=== PATIENT | female | born 1940 | race African-American/Black ===

== ENCOUNTER → 2016-06-25 | Outpatient (CLI) | payer BC ==
[~2016-06-25] MED LIST: AMLO10TA2 PO; ATOR10TA; CAR125T PO; ESCI20TA PO; OMEP20TA44 PO; WARF5TAB PO
[2016-06-25 12:14] LABS: Urine Bilirubin Negative (Negative); Urine Color Yellow (Yellow); Urine Glucose Normal (Normal); Urine Urobilinogen Normal (Negative)
[2016-06-25 12:15] LABS: Urine Blood Negative /uL (Negative); Urine Ketone Negative (Negative); Urine Nitrite Negative (Negative); Urine RBC 1 /hpf (0 - 4); Urine Squamous Epithelial Cell FEW /hpf (<5)
[2016-06-25 12:17] LABS: Hematocrit 49.9 % (36.0-46.0); Hemoglobin 16.6 g/dL (12.2-16.2); Mean Corpuscular Hemoglobin 30.7 pg (28.0-32.0); Mean Corpuscular Hgb Conc. 33.4 g/dL (32.0-36.0); Mean Corpuscular Volume 91.9 fL (80.0-100.0); Mean Platelet Volume 9.3 fL (7.4-10.4); Platelet Count (auto) 412 10^3/uL (140-450); Red Cell Distribution Width 14.5 % (11.6-16.0); SUSPECT VIEW TRANSMISSION; White Blood Cell 4.1 10^3/uL (4.4-10.8)
[2016-06-25 12:22] LABS: Metamyelocytes % 0; Myelocytes % 0; Promyelocytes % 0; Reactive Lymphocytes 0
[2016-06-25 13:10] LABS: Albumin 3.7 g/dL (3.4-5.0); BUN/Creatinine Ratio 7.9; Bilirubin, Total 0.8 mg/dL (0.2-1.0); Calcium 9.4 mg/dL (8.5-10.1); Potassium 3.6 mmol/L (3.5-5.1); Total Protein 8.7 g/dL (6.4-8.2)
[2016-06-25 14:09] LABS: Large Platelets FEW; Platelet Estimate Adequate; RBC Morphology Normal
== END | disposition home or self-care (01) ==
LOC: LAB 11:35
PROVIDERS: ATTEND Internal Medicine
DX: Z00.00 Encounter for general adult medical examination without abnormal findings (principal); I10 Essential (primary) hypertension; E78.2 Mixed hyperlipidemia; E55.9 Vitamin D deficiency, unspecified
CPT/HCPCS: 36415; 80053; 80061; 81001; 82306; 83036; 84443; 85007; 85027

== ENCOUNTER 2016-11-18 13:44 | Emergency (ER) | payer MEDICARE, OTHER ==
[~2016-11-18 13:44] MED LIST changes: -AMLO10TA2 PO; +APIX5TAB PO; -ATOR10TA; +ATOR20TA50 PO; -CAR125T PO; +CAR3125T OR; +CHOL1000T PO; +DONE5TAB11 PO; -ESCI20TA PO; +LEV25T PO; +LEVO25TA6 PO; -OMEP20TA44 PO; -WARF5TAB PO
== END 2016-11-18 14:27 | disposition left against medical advice (07) ==
LOC: ER 13:44
DX: Z76.1 Encounter for health supervision and care of foundling (principal); Z76.0 Encounter for issue of repeat prescription; Z53.21 Procedure and treatment not carried out due to patient leaving prior to being seen by health care provider

== ENCOUNTER → 2016-12-29 | Outpatient (CLI) | payer MEDICARE, OTHER ==
[2016-12-29 15:56] LABS: Basophils # (auto) 0.1 uL; Basophils % (auto) 1.1 % (0.0-2.0); Eosinophils # (auto) 0.6 uL; Eosinophils % (auto) 7.9 % (0.0-7.0); Hemoglobin 14.1 g/dL (12.2-16.2); Lymphocytes # (auto) 2.9 uL; Lymphocytes % (auto) 37.5 % (10.0-50.0); Mean Corpuscular Hemoglobin 29.8 pg (28.0-32.0); Mean Corpuscular Hgb Conc. 32.7 g/dL (32.0-36.0); Mean Platelet Volume 8.7 fL (6.9-10.8); Monocytes # (auto) 0.6 uL; Monocytes % (auto) 8.2 % (0.0-12.0); Neutrophils # (auto) 3.5 uL; Neutrophils % (auto) 45.3 % (37.0-80.0); Nucleated Red Blood Cells % 0.1 %; Platelet Count (auto) 357 10^3/uL (140-450); Red Cell Distribution Width 15.6 % (11.8-14.3); White Blood Cell 7.8 10^3/uL (4.4-10.8)
[2016-12-29 16:45] LABS: Albumin 3.5 g/dL (3.4-5.0); BUN/Creatinine Ratio 17.8; Bilirubin, Total 0.3 mg/dL (0.2-1.0); Calcium 9.5 mg/dL (8.5-10.1); Potassium 3.6 mmol/L (3.5-5.1)
== END | disposition home or self-care (01) ==
LOC: LAB 15:23
DX: I10 Essential (primary) hypertension (principal); M25.50 Pain in unspecified joint; D64.9 Anemia, unspecified; E78.00 Pure hypercholesterolemia, unspecified; M19.90 Unspecified osteoarthritis, unspecified site; Z79.899 Other long term (current) drug therapy
CPT/HCPCS: 36415; 80053; 85025; 85652; 86141

== ENCOUNTER 2017-02-22 20:18 | Inpatient (IN) | payer MEDICARE, OTHER ==
[~2017-02-22] VITALS: Ht 152.4 cm; Wt 76.1 kg
[2017-02-22 21:10] LABS: Basophils # (auto) 0 uL; Basophils % (auto) 0.4 % (0.0-2.0); Eosinophils # (auto) 0.1 uL; Eosinophils % (auto) 0.9 % (0.0-7.0); Hemoglobin 13.9 g/dL (12.2-16.2); Lymphocytes # (auto) 1.6 uL; Lymphocytes % (auto) 14.1 % (10.0-50.0); Mean Corpuscular Hemoglobin 30.6 pg (28.0-32.0); Mean Corpuscular Hgb Conc. 33.1 g/dL (32.0-36.0); Mean Corpuscular Volume 92.6 fL (80.0-100.0); Monocytes # (auto) 1.1 uL; Monocytes % (auto) 9.7 % (0.0-12.0); Neutrophils # (auto) 8.2 uL; Neutrophils % (auto) 74.9 % (37.0-80.0); Nucleated Red Blood Cells % 0.1 %; Platelet Count (auto) 328 10^3/uL (140-450); Red Blood Cells 4.53 10^6/uL (4.0-5.20); Red Cell Distribution Width 16.6 % (11.8-14.3)
[2017-02-22 21:27] LABS: INR 1.05 (0.9-1.15); Partial Thromboplastin Time 31.8 sec (22.64-33.71); Prothrombin Time 11.4 sec (9.37-12.3)
[2017-02-22 21:28] LABS: Albumin 3.1 g/dL (3.4-5.0); BUN/Creatinine Ratio 14.7; Bilirubin, Total 0.3 mg/dL (0.2-1.0); Calcium 8.7 mg/dL (8.5-10.1); Potassium 3.2 mmol/L (3.5-5.1); Total Protein 7.9 g/dL (6.4-8.2)
[2017-02-22] MEDS ORDERED: MORPHINE SULFATE 10 MG/ML INJ 1ML SDV IV ONE (22:45)
[2017-02-22] MEDS ORDERED: ONDANSETRON HCL 4 MG/2 ML VIAL IV ONE (22:45)
[2017-02-23] MEDS ORDERED: POTASSIUM CHL 20 Meq TABLET PO ONE (01:30)
[2017-02-23] MEDS ORDERED: MORPHINE SULF INJ 2 MG/ML SYRINGE 1ML IV ONE (06:30)
[2017-02-23] MEDS: ONDANSETRON HCL 4 MG/2 ML VIAL IV PRN ×2 (06:39→14:02)
[2017-02-23] MEDS ORDERED: LORazepam 0.5 MG TAB PO PRN (07:45)
[2017-02-23] MEDS: LEVOTHYROXINE SODIUM 25 MCG TAB PO SCH (07:56)
[2017-02-23] MEDS: MORPHINE SULF INJ 2 MG/ML SYRINGE 1ML IV PRN ×2 (07:56→14:02)
[2017-02-23] MEDS ORDERED: APIXABAN 5 MG TAB PO SCH (10:00)
[2017-02-23] MEDS: DULoxetine HCL 30 MG CAP PO SCH (10:09)
[2017-02-23] MEDS: CARVEDILOL 12.5 MG TAB PO SCH ×2 (10:09→21:54)
[2017-02-23] MEDS ORDERED: cefTRIAXone 1GM/10ml IVPUSH 10 ML IV ONE ×2 (15:15→15:16)
[2017-02-23 15:18] LABS: Urine Bacteria None Seen /hpf (None Seen)
[2017-02-23] MEDS: SODIUM CHLORIDE 0.9% 1,000 ML IV SCH ×2 (15:29→21:54)
[2017-02-23] MEDS: IBUPROFEN 600 MG TAB PO PRN (16:11)
[2017-02-23 16:12] LABS: Urine Specific Gravity 1.025 (1.001-1.035)
[2017-02-23 16:13] LABS: Urine Blood Trace /uL (Negative)
[2017-02-23 16:15] LABS: Urine Mucus MODERATE (None Seen); Urine WBC 5 /hpf (0 - 5)
[2017-02-23 21:00] VITALS: BP 107/62
[2017-02-23] MEDS: DONEPEZIL HYDROCHLORIDE 5 MG TAB PO SCH (21:53)
[2017-02-23] MEDS: ATORVASTATIN 20 MG TAB PO SCH (21:54)
[2017-02-23 21:57] VITALS: BP 107/62
[2017-02-24] VITALS (7 sets, daily range): BP systolic 88–139; BP diastolic 41–137
[2017-02-24] MEDS ORDERED: DULO20CA PO (00:34)
[2017-02-24 05:37] LABS: Basophils # (auto) 0.1 uL; Basophils % (auto) 0.6 % (0.0-2.0); Eosinophils # (auto) 0.2 uL; Eosinophils % (auto) 2.9 % (0.0-7.0); Hematocrit 35.2 % (36.0-46.0); Hemoglobin 11.8 g/dL (12.2-16.2); Lymphocytes # (auto) 1.8 uL; Lymphocytes % (auto) 20.7 % (10.0-50.0); Mean Corpuscular Hemoglobin 31.5 pg (28.0-32.0); Mean Corpuscular Hgb Conc. 33.6 g/dL (32.0-36.0); Mean Corpuscular Volume 93.6 fL (80.0-100.0); Monocytes # (auto) 1.1 uL; Monocytes % (auto) 13.2 % (0.0-12.0); Neutrophils # (auto) 5.4 uL; Neutrophils % (auto) 62.6 % (37.0-80.0); Platelet Count (auto) 272 10^3/uL (140-450); Red Blood Cells 3.76 10^6/uL (4.0-5.20); Red Cell Distribution Width 16.6 % (11.8-14.3); White Blood Cell 8.6 10^3/uL (4.4-10.8)
[2017-02-24 06:00] LABS: Calcium 8.9 mg/dL (8.5-10.1); Magnesium 2.5 mg/dL (1.6-2.6); Potassium 3.7 mmol/L (3.5-5.1)
[2017-02-24] MEDS: LEVOTHYROXINE SODIUM 25 MCG TAB PO SCH (06:06)
[2017-02-24] MEDS ORDERED: LIDOCAINE W/ EPINEPHRINE 2% INJ 20ML VIAL IJ ONE (06:15)
[2017-02-24] MEDS ORDERED: BUPIVACAINE 0.25% INJ 50ML VIAL IJ ONE (06:15)
[2017-02-24] MEDS ORDERED: BUPIVACAINE W/ EPINEPH 0.25% INJ 50ML MDV IJ ONE (07:15)
[2017-02-24] MEDS ORDERED: LIDOCAINE 2%HCL (LOCAL ANESTH.) INJ 20ML MDV IJ ONE (07:15)
[2017-02-24] MEDS: IBUPROFEN 600 MG TAB PO PRN ×2 (08:44→16:34)
[2017-02-24] MEDS: CARVEDILOL 12.5 MG TAB PO SCH ×2 (08:55→22:00)
[2017-02-24] MEDS: cefTRIAXone 1GM/10ml IVPUSH 10 ML IV SCH (08:55)
[2017-02-24] MEDS: HYDROcodone-ACET 5/325MG TAB PO PRN ×2 (09:39→20:33)
[2017-02-24] MEDS: DULoxetine HCL 30 MG CAP PO SCH (10:00)
[2017-02-24] MEDS: APIXABAN 5 MG TAB PO SCH ×2 (15:41→22:43)
[2017-02-24] MEDS: ATORVASTATIN 20 MG TAB PO SCH (22:43)
[2017-02-24] MEDS: DONEPEZIL HYDROCHLORIDE 5 MG TAB PO SCH (22:43)
[2017-02-24] MEDS: SODIUM CHLORIDE 0.9% 1,000 ML IV SCH (22:44)
[2017-02-24] MEDS: ONDANSETRON HCL 4 MG/2 ML VIAL IV PRN (22:44)
[2017-02-24] MEDS: MORPHINE SULFATE 10 MG/ML INJ 1ML SDV IV PRN (22:44)
[2017-02-25 05:00] VITALS: BP 110/61
[2017-02-25] MEDS: IBUPROFEN 600 MG TAB PO PRN (05:10)
[2017-02-25] MEDS: LEVOTHYROXINE SODIUM 25 MCG TAB PO SCH (05:11)
[2017-02-25 07:03] LABS: Basophils # (auto) 0 uL; Basophils % (auto) 0.4 % (0.0-2.0); Eosinophils # (auto) 0.3 uL; Eosinophils % (auto) 4.5 % (0.0-7.0); Hematocrit 34.9 % (36.0-46.0); Hemoglobin 11.5 g/dL (12.2-16.2); Lymphocytes # (auto) 1.3 uL; Lymphocytes % (auto) 17.7 % (10.0-50.0); Mean Corpuscular Hemoglobin 30.8 pg (28.0-32.0); Mean Corpuscular Volume 93.5 fL (80.0-100.0); Monocytes # (auto) 0.8 uL; Monocytes % (auto) 10.9 % (0.0-12.0); Neutrophils % (auto) 66.5 % (37.0-80.0); Nucleated Red Blood Cells % 0.1 %; Platelet Count (auto) 310 10^3/uL (140-450); Red Blood Cells 3.73 10^6/uL (4.0-5.20); Red Cell Distribution Width 16.4 % (11.8-14.3); White Blood Cell 7.5 10^3/uL (4.4-10.8)
[2017-02-25 07:26] LABS: BUN/Creatinine Ratio 25.5; Calcium 8.6 mg/dL (8.5-10.1); Potassium 3.8 mmol/L (3.5-5.1)
[2017-02-25 09:00] VITALS: BP 117/60
[2017-02-25] MEDS: cefTRIAXone 1GM/10ml IVPUSH 10 ML IV SCH (09:28)
[2017-02-25] MEDS: DULoxetine HCL 30 MG CAP PO SCH (09:28)
[2017-02-25] MEDS: APIXABAN 5 MG TAB PO SCH ×2 (09:29→22:14)
[2017-02-25 13:00] VITALS: BP 111/57
[2017-02-25] MEDS: HYDROcodone-ACET 5/325MG TAB PO PRN (15:32)
[2017-02-25 16:30] VITALS: BP 146/65
[2017-02-25] MEDS: CARVEDILOL 12.5 MG TAB PO SCH ×2 (17:37→22:14)
[2017-02-25] MEDS: SODIUM CHLORIDE 0.9% 1,000 ML IV SCH (17:37)
[2017-02-25 22:00] VITALS: BP 103/51
[2017-02-25 22:07] VITALS: BP 103/51
[2017-02-25] MEDS: DONEPEZIL HYDROCHLORIDE 5 MG TAB PO SCH (22:13)
[2017-02-25] MEDS: ATORVASTATIN 20 MG TAB PO SCH (22:14)
[2017-02-26] MEDS: HYDROcodone-ACET 5/325MG TAB PO PRN (00:29)
[2017-02-26] MEDS: MORPHINE SULFATE 10 MG/ML INJ 1ML SDV IV PRN ×4 (05:00→20:02)
[2017-02-26] MEDS: ONDANSETRON HCL 4 MG/2 ML VIAL IV PRN (05:00)
[2017-02-26 05:13] VITALS: BP 113/63
[2017-02-26] MEDS: LEVOTHYROXINE SODIUM 25 MCG TAB PO SCH (05:53)
[2017-02-26 09:00] VITALS: BP 127/66
[2017-02-26] MEDS: cefTRIAXone 1GM/10ml IVPUSH 10 ML IV SCH (09:38)
[2017-02-26] MEDS: CARVEDILOL 12.5 MG TAB PO SCH ×2 (09:39→21:56)
[2017-02-26] MEDS: DULoxetine HCL 30 MG CAP PO SCH (09:39)
[2017-02-26] MEDS: APIXABAN 5 MG TAB PO SCH (10:00)
[2017-02-26] MEDS: SODIUM CHLORIDE 0.9% 1,000 ML IV SCH (11:05)
[2017-02-26 13:00] VITALS: BP 136/64
[2017-02-26 17:00] VITALS: BP 146/73
[2017-02-26] MEDS: DONEPEZIL HYDROCHLORIDE 5 MG TAB PO SCH (21:56)
[2017-02-26] MEDS: ATORVASTATIN 20 MG TAB PO SCH (21:56)
[2017-02-26 22:00] VITALS: BP 142/78
[2017-02-27] MEDS: SODIUM CHLORIDE 0.9% 1,000 ML IV SCH ×2 (02:10→12:45)
[2017-02-27 05:00] VITALS: BP 150/76
[2017-02-27 06:28] LABS: Basophils # (auto) 0 uL; Basophils % (auto) 0.5 % (0.0-2.0); Eosinophils # (auto) 0.2 uL; Eosinophils % (auto) 3.6 % (0.0-7.0); Hematocrit 33.1 % (36.0-46.0); Hemoglobin 10.7 g/dL (12.2-16.2); Lymphocytes # (auto) 1.9 uL; Mean Corpuscular Hemoglobin 30.2 pg (28.0-32.0); Mean Corpuscular Hgb Conc. 32.2 g/dL (32.0-36.0); Mean Corpuscular Volume 93.8 fL (80.0-100.0); Monocytes # (auto) 0.8 uL; Monocytes % (auto) 10.9 % (0.0-12.0); Platelet Count (auto) 333 10^3/uL (140-450); Red Blood Cells 3.53 10^6/uL (4.0-5.20); Red Cell Distribution Width 15.8 % (11.8-14.3); White Blood Cell 6.9 10^3/uL (4.4-10.8)
[2017-02-27] MEDS: LEVOTHYROXINE SODIUM 25 MCG TAB PO SCH (06:43)
[2017-02-27 06:47] LABS: BUN/Creatinine Ratio 23.9; Calcium 9.1 mg/dL (8.5-10.1)
[2017-02-27 08:00] VITALS: BP 156/78
[2017-02-27 09:00] VITALS: BP 156/78
[2017-02-27] MEDS: DULoxetine HCL 30 MG CAP PO SCH (09:22)
[2017-02-27] MEDS: cefTRIAXone 1GM/10ml IVPUSH 10 ML IV SCH (09:23)
[2017-02-27] MEDS: CARVEDILOL 12.5 MG TAB PO SCH ×2 (09:24→21:59)
[2017-02-27] MEDS: MORPHINE SULFATE 10 MG/ML INJ 1ML SDV IV PRN ×4 (09:24→21:57)
[2017-02-27 13:00] VITALS: BP 128/73
[2017-02-27 17:00] VITALS: BP 151/74
[2017-02-27] MEDS: HYDROcodone-ACET 5/325MG TAB PO PRN (20:07)
[2017-02-27] MEDS: DONEPEZIL HYDROCHLORIDE 5 MG TAB PO SCH (21:58)
[2017-02-27] MEDS: ATORVASTATIN 20 MG TAB PO SCH (21:59)
[2017-02-27 22:00] VITALS: BP 146/70
[2017-02-28] MEDS ORDERED: diphenhdrAMINE HCL 25 MG CAP PO ONE (00:30)
[2017-02-28] MEDS: HYDROcodone-ACET 5/325MG TAB PO PRN ×2 (00:51→13:43)
[2017-02-28 05:00] VITALS: BP 108/67
[2017-02-28] MEDS: MORPHINE SULFATE 10 MG/ML INJ 1ML SDV IV PRN ×3 (05:24→22:51)
[2017-02-28] MEDS: IBUPROFEN 600 MG TAB PO PRN (06:29)
[2017-02-28] MEDS: LEVOTHYROXINE SODIUM 25 MCG TAB PO SCH (06:30)
[2017-02-28 06:56] LABS: Hemoglobin 10.8 g/dL (12.2-16.2)
[2017-02-28] MEDS: SODIUM CHLORIDE 0.9% 1,000 ML IV SCH (08:45)
[2017-02-28 09:00] VITALS: BP 143/60
[2017-02-28] MEDS: DULoxetine HCL 30 MG CAP PO SCH (09:47)
[2017-02-28] MEDS: CARVEDILOL 12.5 MG TAB PO SCH ×2 (09:51→22:49)
[2017-02-28 13:00] VITALS: BP 131/62
[2017-02-28] MEDS ORDERED: LACTULOSE 20Gm/30ML SOLN PO PRN (14:00)
[2017-02-28] MEDS ORDERED: DOCUSATE SOD 100 MG CAP PO SCH (14:00)
[2017-02-28 17:00] VITALS: BP 133/56
[2017-02-28] MEDS ORDERED: IOHEXOL 300 MG/ML 100ML BOTTLE IJ ONE (22:09)
[2017-02-28 22:18] VITALS: BP 135/66
[2017-02-28] MEDS: DOCUSATE SOD 100 MG CAP PO SCH (22:48)
[2017-02-28] MEDS: DONEPEZIL HYDROCHLORIDE 5 MG TAB PO SCH (22:48)
[2017-02-28] MEDS: ATORVASTATIN 20 MG TAB PO SCH (22:49)
[2017-03-01] MEDS: MORPHINE SULFATE 10 MG/ML INJ 1ML SDV IV PRN ×3 (04:11→19:30)
[2017-03-01 04:43] VITALS: BP 173/74
[2017-03-01] MEDS: SODIUM CHLORIDE 0.9% 1,000 ML IV SCH (04:49)
[2017-03-01] MEDS: LEVOTHYROXINE SODIUM 25 MCG TAB PO SCH (06:13)
[2017-03-01 06:43] LABS: Basophils # (auto) 0.1 uL; Basophils % (auto) 0.6 % (0.0-2.0); Eosinophils # (auto) 0.3 uL; Hematocrit 33.5 % (36.0-46.0); Lymphocytes # (auto) 2.3 uL; Lymphocytes % (auto) 29.2 % (10.0-50.0); Mean Corpuscular Hemoglobin 30.6 pg (28.0-32.0); Mean Corpuscular Hgb Conc. 32.9 g/dL (32.0-36.0); Monocytes # (auto) 0.8 uL; Monocytes % (auto) 10.6 % (0.0-12.0); Neutrophils # (auto) 4.4 uL; Neutrophils % (auto) 55.6 % (37.0-80.0); Platelet Count (auto) 362 10^3/uL (140-450); Red Cell Distribution Width 15.8 % (11.8-14.3)
[2017-03-01 06:57] LABS: BUN/Creatinine Ratio 23.4; Potassium 3.9 mmol/L (3.5-5.1)
[2017-03-01 09:00] VITALS: BP 148/77
[2017-03-01] MEDS: HYDROcodone-ACET 5/325MG TAB PO PRN (09:49)
[2017-03-01] MEDS: CARVEDILOL 12.5 MG TAB PO SCH ×2 (09:50→22:06)
[2017-03-01] MEDS: DOCUSATE SOD 100 MG CAP PO SCH ×2 (09:50→22:05)
[2017-03-01] MEDS: DULoxetine HCL 30 MG CAP PO SCH (09:50)
[2017-03-01 13:00] VITALS: BP 143/79
[2017-03-01 18:20] VITALS: BP 143/79
[2017-03-01 21:30] VITALS: BP 152/72
[2017-03-01] MEDS: DONEPEZIL HYDROCHLORIDE 5 MG TAB PO SCH (22:05)
[2017-03-01] MEDS: ATORVASTATIN 20 MG TAB PO SCH (22:06)
[2017-03-02] MEDS: MORPHINE SULFATE 10 MG/ML INJ 1ML SDV IV PRN ×4 (01:51→17:25)
[2017-03-02 05:00] VITALS: BP 153/67
[2017-03-02] MEDS: LEVOTHYROXINE SODIUM 25 MCG TAB PO SCH (06:06)
[2017-03-02 07:17] LABS: Hematocrit 34.2 % (36.0-46.0); Hemoglobin 11.3 g/dL (12.2-16.2)
[2017-03-02 08:00] VITALS: BP 159/65
[2017-03-02 09:13] VITALS: BP 159/65
[2017-03-02] MEDS: DULoxetine HCL 30 MG CAP PO SCH (10:32)
[2017-03-02] MEDS: DOCUSATE SOD 100 MG CAP PO SCH ×2 (10:32→22:12)
[2017-03-02] MEDS: CARVEDILOL 12.5 MG TAB PO SCH ×2 (10:33→22:12)
[2017-03-02 12:44] VITALS: BP 145/69
[2017-03-02] MEDS ORDERED: APIXABAN 5 MG TAB PO ONE (12:53)
[2017-03-02] MEDS ORDERED: LORazepam 0.5 MG TAB PO PRN (13:00)
[2017-03-02] MEDS ORDERED: HYDROcodone-ACET 5/325MG TAB PO PRN (13:00)
[2017-03-02 16:35] VITALS: BP 141/63
[2017-03-02 22:07] VITALS: BP 166/79
[2017-03-02] MEDS: DONEPEZIL HYDROCHLORIDE 5 MG TAB PO SCH (22:11)
[2017-03-02] MEDS: ATORVASTATIN 20 MG TAB PO SCH (22:12)
[2017-03-02] MEDS: APIXABAN 5 MG TAB PO SCH (22:12)
[2017-03-03] MEDS: MORPHINE SULFATE 10 MG/ML INJ 1ML SDV IV PRN ×4 (00:38→13:45)
[2017-03-03 05:09] VITALS: BP 145/57
[2017-03-03] MEDS: LEVOTHYROXINE SODIUM 25 MCG TAB PO SCH (05:56)
[2017-03-03 07:29] LABS: Hematocrit 33.7 % (36.0-46.0); Hemoglobin 11.1 g/dL (12.2-16.2)
[2017-03-03 08:00] VITALS: BP 145/67
[2017-03-03 09:25] VITALS: BP 145/67
[2017-03-03] MEDS: DULoxetine HCL 30 MG CAP PO SCH (09:29)
[2017-03-03] MEDS: CARVEDILOL 12.5 MG TAB PO SCH (09:30)
[2017-03-03] MEDS: APIXABAN 5 MG TAB PO SCH (09:30)
[2017-03-03] MEDS: DOCUSATE SOD 100 MG CAP PO SCH (09:30)
[2017-03-03] MEDS ORDERED: HYDR-4683 PO (11:24)
[2017-03-03 12:28] VITALS: BP 128/58
[2017-03-03 12:50] VITALS: BP 128/58
== END 2017-03-03 16:20 | disposition home health service (06) | DRG 553 ==
LOC: ER 20:18 → EDBD 20:18 → OVERFLOW 20:19 → WEST WING 02-23 20:23
PROVIDERS: ADMIT Nurse Practitioner Family; ATTEND Internal Medicine
DX: M17.12 Unilateral primary osteoarthritis, left knee (principal); N17.0 Acute kidney failure with tubular necrosis; E44.1 Mild protein-calorie malnutrition; I69.351 Hemiplegia and hemiparesis following cerebral infarction affecting right dominant side; R31.0 Gross hematuria; M25.462 Effusion, left knee; E03.9 Hypothyroidism, unspecified; E78.5 Hyperlipidemia, unspecified; I10 Essential (primary) hypertension; I25.10 Atherosclerotic heart disease of native coronary artery without angina pectoris; E87.6 Hypokalemia; R73.9 Hyperglycemia, unspecified; J45.909 Unspecified asthma, uncomplicated; Z79.01 Long term (current) use of anticoagulants; Z79.899 Other long term (current) drug therapy; Z82.49 Family history of ischemic heart disease and other diseases of the circulatory system; Z82.5 Family history of asthma and other chronic lower respiratory diseases; Z83.3 Family history of diabetes mellitus; Z85.43 Personal history of malignant neoplasm of ovary; Z86.711 Personal history of pulmonary embolism; Z86.718 Personal history of other venous thrombosis and embolism; Z90.710 Acquired absence of both cervix and uterus; Z90.49 Acquired absence of other specified parts of digestive tract; Z87.440 Personal history of urinary (tract) infections; Z88.6 Allergy status to analgesic agent; Z68.32 Body mass index [BMI] 32.0-32.9, adult; Z71.3 Dietary counseling and surveillance
CPT/HCPCS: 36415; 73700; 74178; 80048; 80053; 80061; 81001; 83735; 84443; 84484; 84550; 85014; 85018; 85025; 85379; 85610; 85652; 85730; 86141; 87040; 87205; 89051; 93005; 93971; 96374; 96375; 96376; 97110; 97116; 97163; 97530; J2405

== ENCOUNTER 2017-03-04 16:38 | Emergency (ER) | payer MEDICARE, OTHER ==
[~2017-03-04] VITALS: Ht 160 cm; Wt 95.3 kg
[~2017-03-04 16:38] MED LIST changes: +DULO20CA PO; +HYDR-4683 PO
[2017-03-04] MEDS ORDERED: ONDANSETRON HCL 4 MG/2 ML VIAL IV ONE (21:15)
[2017-03-04] MEDS ORDERED: MORPHINE SULFATE 10 MG/ML INJ 1ML SDV IV ONE (21:15)
[2017-03-05 04:00] VITALS: BP 173/98
[2017-03-05] MEDS ORDERED: MORPHINE SULFATE 10 MG/ML INJ 1ML SDV IV ONE (04:15)
[2017-04-06] MEDS ORDERED: FAM20T PO (10:47)
[2017-04-06] MEDS ORDERED: CLOP75TA28 PO (10:47)
[2017-04-06] MEDS ORDERED: DOCU100C8 PO (10:47)
[2017-04-06] MEDS ORDERED: ENO100SY SC (12:40)
== END 2017-03-05 05:04 | disposition home or self-care (01) ==
LOC: ER 16:38 → EDBD 16:38 → ER 03-05 05:04
DX: M54.32 Sciatica, left side (principal); M54.17 Radiculopathy, lumbosacral region; I11.0 Hypertensive heart disease with heart failure; I50.9 Heart failure, unspecified; J45.909 Unspecified asthma, uncomplicated; Z86.73 Personal history of transient ischemic attack (TIA), and cerebral infarction without residual deficits; Z86.711 Personal history of pulmonary embolism; Z86.718 Personal history of other venous thrombosis and embolism; Z82.49 Family history of ischemic heart disease and other diseases of the circulatory system; Z88.6 Allergy status to analgesic agent; Z88.8 Allergy status to other drugs, medicaments and biological substances
CPT/HCPCS: 51702; 72131; 93005; 94761; 96374; 96375; 96376; 99284; J2270; J2405

== ENCOUNTER 2017-03-24 23:19 | Inpatient (IN) | payer MEDICARE, OTHER ==
[~2017-03-24] VITALS: Ht 152.4 cm; Wt 79.5 kg
[2017-03-25 00:55] LABS: Basophils # (auto) 0.1 uL; Basophils % (auto) 0.9 % (0.0-2.0); Eosinophils # (auto) 0.5 uL; Eosinophils % (auto) 7.2 % (0.0-7.0); Hematocrit 36.7 % (36.0-46.0); Hemoglobin 11.6 g/dL (12.2-16.2); Lymphocytes # (auto) 2.3 uL; Lymphocytes % (auto) 31.4 % (10.0-50.0); Mean Corpuscular Hemoglobin 29.6 pg (28.0-32.0); Mean Corpuscular Hgb Conc. 31.7 g/dL (32.0-36.0); Mean Corpuscular Volume 93.5 fL (80.0-100.0); Monocytes # (auto) 0.7 uL; Monocytes % (auto) 9.7 % (0.0-12.0); Neutrophils # (auto) 3.8 uL; Neutrophils % (auto) 50.8 % (37.0-80.0); Nucleated Red Blood Cells % 0.2 %; Platelet Count (auto) 330 10^3/uL (140-450); Red Blood Cells 3.92 10^6/uL (4.0-5.20); Red Cell Distribution Width 15.7 % (11.8-14.3); White Blood Cell 7.4 10^3/uL (4.4-10.8)
[2017-03-25 01:07] LABS: Albumin 2.6 g/dL (3.4-5.0); BUN/Creatinine Ratio 21.9; Magnesium 2.2 mg/dL (1.6-2.6); Potassium 3.8 mmol/L (3.5-5.1)
[2017-03-25 01:10] LABS: Bilirubin, Total 0.3 mg/dL (0.2-1.0); Total Protein 7.7 g/dL (6.4-8.2)
[2017-03-25 01:21] LABS: INR 1.1 (0.9-1.15); Partial Thromboplastin Time 31.7 sec (22.64-33.71)
[2017-03-25 02:13] LABS: Urine Bacteria MOD /hpf (None Seen); Urine Blood 2+ /uL (Negative); Urine Mucus FEW (None Seen); Urine Specific Gravity 1.015 (1.001-1.035); Urine WBC 62 /hpf (0 - 5); Urine WBC Clumps PRESENT /hpf (None Seen)
[2017-03-25] MEDS ORDERED: HYDROcodone-ACET 10/325MG TAB PO ONE (05:45)
[2017-03-25] MEDS ORDERED: cefTRIAXone 1GM/10ml IVPUSH 10 ML IV ONE (05:45)
[2017-03-25] MEDS ORDERED: cloNIDine HCL 0.1 MG TAB PO ONE (05:45)
[2017-03-25] MEDS ORDERED: ONDANSETRON HCL 4 MG/2 ML VIAL IV PRN (08:15)
[2017-03-25] MEDS ORDERED: ACETAMINOPHEN 500 MG TAB PO PRN (08:15)
[2017-03-25] MEDS ORDERED: cloNIDine HCL 0.1 MG TAB PO PRN (08:30)
[2017-03-25] MEDS: HYDROcodone-ACET 5/325MG TAB PO PRN ×2 (10:17→20:54)
[2017-03-25 15:55] VITALS: BP 143/78
[2017-03-25 17:39] VITALS: BP 152/67
[2017-03-25 22:17] VITALS: BP 137/70
[2017-03-26] MEDS: HYDROcodone-ACET 5/325MG TAB PO PRN ×4 (01:39→23:57)
[2017-03-26 05:07] VITALS: BP 163/88
[2017-03-26 09:00] VITALS: BP 131/68
[2017-03-26] MEDS: cefTRIAXone 1GM/10ml IVPUSH 10 ML IV SCH (09:25)
[2017-03-26 13:00] VITALS: BP 112/57
[2017-03-26 17:00] VITALS: BP 149/70
[2017-03-26 22:00] VITALS: BP 111/61
[2017-03-27] MEDS: HYDROcodone-ACET 5/325MG TAB PO PRN ×2 (05:23→09:34)
[2017-03-27 06:24] VITALS: BP 123/61
[2017-03-27 08:00] VITALS: BP 139/56
[2017-03-27 09:00] VITALS: BP 125/62
[2017-03-27] MEDS: cefTRIAXone 1GM/10ml IVPUSH 10 ML IV SCH (09:00)
[2017-04-06] MEDS ORDERED: CLOP75TA28 PO (10:47)
[2017-04-06] MEDS ORDERED: DOCU100C8 PO (10:47)
[2017-04-06] MEDS ORDERED: FAM20T PO (10:47)
[2017-04-06] MEDS ORDERED: ENO100SY SC (12:40)
== END 2017-03-27 13:46 | DRG 689 ==
LOC: EDBD 23:19 → ER 23:19 → MERGE 23:20 → OVERFLOW 23:20 → WEST WING 03-25 15:26
PROVIDERS: ADMIT Nurse Practitioner Family; ATTEND Family Medicine
DX: N30.91 Cystitis, unspecified with hematuria (principal); K56.2 Volvulus; D64.9 Anemia, unspecified; K56.7 Ileus, unspecified; E86.0 Dehydration; K57.30 Diverticulosis of large intestine without perforation or abscess without bleeding; F03.90 Unspecified dementia, unspecified severity, without behavioral disturbance, psychotic disturbance, mood disturbance, and anxiety; I10 Essential (primary) hypertension; Z74.01 Bed confinement status; Z88.6 Allergy status to analgesic agent; Z82.49 Family history of ischemic heart disease and other diseases of the circulatory system; Z83.3 Family history of diabetes mellitus; Z82.5 Family history of asthma and other chronic lower respiratory diseases; Z80.8 Family history of malignant neoplasm of other organs or systems; Z88.8 Allergy status to other drugs, medicaments and biological substances; Z79.899 Other long term (current) drug therapy; I69.398 Other sequelae of cerebral infarction
CPT/HCPCS: 36415; 51702; 74176; 80053; 81001; 83735; 85025; 85610; 85730; 96374

== ENCOUNTER 2017-03-29 12:59 | Inpatient (IN) | payer MEDICARE, OTHER ==
[~2017-03-29] VITALS: Ht 154.9 cm; Wt 80.8 kg
[~2017-03-29 12:59] MED LIST changes: -LEVO25TA6 PO
[2017-03-29 13:57] LABS: Basophils # (auto) 0 uL; Basophils % (auto) 0.5 % (0.0-2.0); Eosinophils # (auto) 0.4 uL; Eosinophils % (auto) 5.6 % (0.0-7.0); Hematocrit 35.5 % (36.0-46.0); Hemoglobin 11.5 g/dL (12.2-16.2); Lymphocytes # (auto) 2.1 uL; Mean Corpuscular Hemoglobin 30.5 pg (28.0-32.0); Mean Corpuscular Hgb Conc. 32.4 g/dL (32.0-36.0); Mean Corpuscular Volume 94.2 fL (80.0-100.0); Monocytes % (auto) 12.9 % (0.0-12.0); Neutrophils # (auto) 4.3 uL; Nucleated Red Blood Cells % 0.1 %; Platelet Count (auto) 311 10^3/uL (140-450); Red Blood Cells 3.77 10^6/uL (4.0-5.20); Red Cell Distribution Width 16.2 % (11.8-14.3)
[2017-03-29 14:18] LABS: Alanine Aminotransferase 11 U/L (13-56); Albumin 2.6 g/dL (3.4-5.0); Alkaline Phosphatase 67 U/L (45-117); Anion Gap 5 (5-15); Aspartate Aminotransferase 9 U/L (15-37); BUN/Creatinine Ratio 19.4; Bilirubin, Total 0.2 mg/dL (0.2-1.0); Blood Urea Nitrogen 14 mg/dL (7-18); Carbon Dioxide 29 mmol/L (21-32); Chloride 107 mmol/L (98-107); GFR African American 101 mL/min; GFR Non-African American 83 mL/min; Glucose 85 mg/dL (74-106); Magnesium 2.6 mg/dL (1.6-2.6); Potassium 4.1 mmol/L (3.5-5.1); Sodium 141 mmol/L (136-145); Total Protein 8.4 g/dL (6.4-8.2)
[2017-03-29] MEDS ORDERED: ACETAMINOPHEN 325 MG TAB PO ONE ×2 (16:03→16:15)
[2017-03-29] MEDS ORDERED: HYDROcodone-ACET 10/325MG TAB PO ONE (20:00)
[2017-03-29] MEDS ORDERED: TEMAZEPAM 15 MG CAP PO PRN (21:45)
[2017-03-29] MEDS ORDERED: NITROGLYCERIN 0.4 MG SL TAB SL PRN (21:45)
[2017-03-29] MEDS ORDERED: MORPHINE SULFATE 4 MG/ML SYR/VIAL IV PRN (21:45)
[2017-03-29] MEDS: FAMOTIDINE 20 MG TAB PO SCH (22:13)
[2017-03-29] MEDS: CARVEDILOL 12.5 MG TAB PO SCH (22:13)
[2017-03-29] MEDS: DONEPEZIL HYDROCHLORIDE 5 MG TAB PO SCH (22:13)
[2017-03-29 23:50] VITALS: BP 184/81
[2017-03-30] VITALS (7 sets, daily range): BP systolic 127–171; BP diastolic 66–81
[2017-03-30] MEDS: cloNIDine HCL 0.1 MG TAB PO PRN (01:43)
[2017-03-30] MEDS: ACETAMINOPHEN 325 MG TAB PO PRN ×2 (01:46→17:49)
[2017-03-30] MEDS: LEVOTHYROXINE SODIUM 25 MCG TAB PO SCH (06:50)
[2017-03-30 06:55] LABS: Basophils # (auto) 0.1 uL; Basophils % (auto) 0.8 % (0.0-2.0); Eosinophils # (auto) 0.4 uL; Hematocrit 35.1 % (36.0-46.0); Hemoglobin 11.5 g/dL (12.2-16.2); Lymphocytes # (auto) 1.9 uL; Lymphocytes % (auto) 28.5 % (10.0-50.0); Mean Corpuscular Hemoglobin 30.7 pg (28.0-32.0); Mean Corpuscular Hgb Conc. 32.9 g/dL (32.0-36.0); Mean Corpuscular Volume 93.5 fL (80.0-100.0); Monocytes # (auto) 0.9 uL; Monocytes % (auto) 13.4 % (0.0-12.0); Neutrophils # (auto) 3.5 uL; Neutrophils % (auto) 51.3 % (37.0-80.0); Nucleated Red Blood Cells % 0.1 %; Platelet Count (auto) 291 10^3/uL (140-450); Red Blood Cells 3.75 10^6/uL (4.0-5.20); Red Cell Distribution Width 15.9 % (11.8-14.3); White Blood Cell 6.7 10^3/uL (4.4-10.8)
[2017-03-30 07:18] LABS: Albumin 2.7 g/dL (3.4-5.0); Blood Urea Nitrogen 15 mg/dL (7-18); Calcium 9.2 mg/dL (8.5-10.1); Chloride 106 mmol/L (98-107); Glucose 100 mg/dL (74-106); Potassium 3.8 mmol/L (3.5-5.1); Sodium 139 mmol/L (136-145)
[2017-03-30 07:22] LABS: Anion Gap 3 (5-15); Aspartate Aminotransferase 8 U/L (15-37); BUN/Creatinine Ratio 22.1; Bilirubin, Total 0.3 mg/dL (0.2-1.0); Carbon Dioxide 30 mmol/L (21-32); GFR African American 108 mL/min; GFR Non-African American 89 mL/min; Total Protein 7.8 g/dL (6.4-8.2)
[2017-03-30 07:28] LABS: Alanine Aminotransferase 9 U/L (13-56); Alkaline Phosphatase 63 U/L (45-117)
[2017-03-30] MEDS: CARVEDILOL 12.5 MG TAB PO SCH ×2 (09:35→22:58)
[2017-03-30] MEDS: DULoxetine HCL 30 MG CAP PO SCH (09:36)
[2017-03-30] MEDS: FAMOTIDINE 20 MG TAB PO SCH ×2 (09:36→22:58)
[2017-03-30] MEDS: ONDANSETRON HCL 4 MG/2 ML VIAL IV PRN (09:37)
[2017-03-30] MEDS: DONEPEZIL HYDROCHLORIDE 5 MG TAB PO SCH (22:59)
[2017-03-31 04:57] VITALS: BP 153/80
[2017-03-31] MEDS: ACETAMINOPHEN 325 MG TAB PO PRN ×2 (05:04→16:41)
[2017-03-31] MEDS: LEVOTHYROXINE SODIUM 25 MCG TAB PO SCH (05:18)
[2017-03-31] MEDS: HYDROcodone-ACET 5/325MG TAB PO PRN ×2 (08:34→20:28)
[2017-03-31 09:00] VITALS: BP 146/64
[2017-03-31] MEDS: DULoxetine HCL 30 MG CAP PO SCH (10:56)
[2017-03-31] MEDS: FAMOTIDINE 20 MG TAB PO SCH ×2 (10:57→22:01)
[2017-03-31] MEDS: CARVEDILOL 12.5 MG TAB PO SCH ×2 (10:57→22:02)
[2017-03-31 13:00] VITALS: BP 128/61
[2017-03-31] MEDS ORDERED: ADENOSINE 70 MG in GIVE UN-DILUTED 0 ML IV ONE (14:45)
[2017-03-31 17:00] VITALS: BP 150/75
[2017-03-31 21:42] VITALS: BP 138/68
[2017-03-31] MEDS: DONEPEZIL HYDROCHLORIDE 5 MG TAB PO SCH (22:01)
[2017-04-01] MEDS: HYDROcodone-ACET 5/325MG TAB PO PRN ×4 (01:23→18:55)
[2017-04-01 05:00] VITALS: BP 144/70
[2017-04-01] MEDS: LEVOTHYROXINE SODIUM 25 MCG TAB PO SCH (05:54)
[2017-04-01 09:00] VITALS: BP 149/69
[2017-04-01] MEDS: FAMOTIDINE 20 MG TAB PO SCH ×2 (09:58→21:42)
[2017-04-01] MEDS: DULoxetine HCL 30 MG CAP PO SCH (09:58)
[2017-04-01] MEDS: CARVEDILOL 12.5 MG TAB PO SCH ×2 (09:58→21:41)
[2017-04-01] MEDS: ACETAMINOPHEN 325 MG TAB PO PRN (09:59)
[2017-04-01 13:00] VITALS: BP 125/73
[2017-04-01] MEDS ORDERED: amLODIPine BESYLATE 5 MG TAB PO ONE (13:00)
[2017-04-01] MEDS ORDERED: diphenhdrAMINE HCL 50 MG/1 ML VL IV ONE (13:30)
[2017-04-01] MEDS: ONDANSETRON HCL 4 MG/2 ML VIAL IV PRN (13:48)
[2017-04-01 16:55] VITALS: BP 156/70
[2017-04-01] MEDS: DONEPEZIL HYDROCHLORIDE 5 MG TAB PO SCH (21:41)
[2017-04-01] MEDS: ATORVASTATIN 20 MG TAB PO SCH (21:42)
[2017-04-01 22:00] VITALS: BP 158/75
[2017-04-02] MEDS: HYDROcodone-ACET 5/325MG TAB PO PRN ×5 (01:35→22:30)
[2017-04-02] MEDS: cloNIDine HCL 0.1 MG TAB PO PRN (01:46)
[2017-04-02] MEDS: ONDANSETRON HCL 4 MG/2 ML VIAL IV PRN (03:30)
[2017-04-02 05:00] VITALS: BP 134/58
[2017-04-02] MEDS: LEVOTHYROXINE SODIUM 25 MCG TAB PO SCH (05:58)
[2017-04-02 07:18] LABS: BUN/Creatinine Ratio 22.1; Calcium 9.3 mg/dL (8.5-10.1); Magnesium 2.3 mg/dL (1.6-2.6); Potassium 4.2 mmol/L (3.5-5.1)
[2017-04-02 09:31] VITALS: BP 109/56
[2017-04-02] MEDS: amLODIPine BESYLATE 5 MG TAB PO SCH (10:09)
[2017-04-02] MEDS: CARVEDILOL 12.5 MG TAB PO SCH ×2 (10:09→22:30)
[2017-04-02] MEDS: FAMOTIDINE 20 MG TAB PO SCH ×2 (10:09→22:29)
[2017-04-02] MEDS: DULoxetine HCL 30 MG CAP PO SCH (10:10)
[2017-04-02 12:11] VITALS: BP 90/57
[2017-04-02 12:15] VITALS: BP 115/59
[2017-04-02 17:00] VITALS: BP 95/53
[2017-04-02 22:00] VITALS: BP 107/54
[2017-04-02] MEDS: APIXABAN 5 MG TAB PO SCH (22:00)
[2017-04-02] MEDS: DONEPEZIL HYDROCHLORIDE 5 MG TAB PO SCH (22:30)
[2017-04-02] MEDS: ATORVASTATIN 20 MG TAB PO SCH (22:31)
[2017-04-03] MEDS: HYDROcodone-ACET 5/325MG TAB PO PRN ×3 (04:39→22:25)
[2017-04-03 05:00] VITALS: BP 119/66
[2017-04-03] MEDS: LEVOTHYROXINE SODIUM 25 MCG TAB PO SCH (06:32)
[2017-04-03] MEDS: ONDANSETRON HCL 4 MG/2 ML VIAL IV PRN (06:32)
[2017-04-03 07:09] LABS: Basophils # (auto) 0.1 uL; Basophils % (auto) 0.9 % (0.0-2.0); Eosinophils # (auto) 0.5 uL; Eosinophils % (auto) 6.1 % (0.0-7.0); Hematocrit 33.7 % (36.0-46.0); Lymphocytes # (auto) 2.2 uL; Lymphocytes % (auto) 29.8 % (10.0-50.0); Mean Corpuscular Hemoglobin 30.5 pg (28.0-32.0); Mean Corpuscular Hgb Conc. 32.6 g/dL (32.0-36.0); Mean Corpuscular Volume 93.5 fL (80.0-100.0); Monocytes # (auto) 0.9 uL; Monocytes % (auto) 11.5 % (0.0-12.0); Neutrophils # (auto) 3.8 uL; Neutrophils % (auto) 51.7 % (37.0-80.0); Platelet Count (auto) 277 10^3/uL (140-450); Red Blood Cells 3.61 10^6/uL (4.0-5.20); Red Cell Distribution Width 15.2 % (11.8-14.3); White Blood Cell 7.4 10^3/uL (4.4-10.8)
[2017-04-03] MEDS ORDERED: IOHEXOL 350 MG/ML 100ML IJ ONE (07:11)
[2017-04-03] MEDS ORDERED: LIDOCAINE 2%HCL (LOCAL ANESTH.) INJ 20ML MDV ONE (07:12)
[2017-04-03 07:37] LABS: BUN/Creatinine Ratio 29.9; Calcium 8.8 mg/dL (8.5-10.1)
[2017-04-03 07:49] LABS: Partial Thromboplastin Time 28.9 sec (22.64-33.71); Prothrombin Time 10.9 sec (9.37-12.3)
[2017-04-03] MEDS ORDERED: ANGIOMAX 250 MG VIAL IV ONE (08:28)
[2017-04-03] MEDS ORDERED: SODIUM CHL 0.9% 50 ML ONE (08:29)
[2017-04-03] MEDS ORDERED: fentaNYL CITRATE 100 MCG/2 ML VL ONE (08:29)
[2017-04-03] MEDS ORDERED: MIDAZOLAM HCL 1MG/1ML-2 ML VIAL ONE ×2 (08:29→10:06)
[2017-04-03 09:00] VITALS: BP 121/54
[2017-04-03] MEDS: CARVEDILOL 12.5 MG TAB PO SCH ×3 (10:00→22:13)
[2017-04-03] MEDS: APIXABAN 5 MG TAB PO SCH ×3 (10:00→22:12)
[2017-04-03] MEDS: amLODIPine BESYLATE 5 MG TAB PO SCH ×2 (10:00→13:08)
[2017-04-03] MEDS: FAMOTIDINE 20 MG TAB PO SCH ×3 (10:00→22:12)
[2017-04-03] MEDS: DULoxetine HCL 30 MG CAP PO SCH ×2 (10:00→13:08)
[2017-04-03] MEDS ORDERED: METOPROLOL TARTRATE 1MG/1ML-5ML VIAL IV ONE (10:06)
[2017-04-03] MEDS ORDERED: VERAPAMIL 2.5MG/ML INJ 2ML VIAL IV ONE (10:10)
[2017-04-03] MEDS: NITROGLYCERIN 5MG/ML 10ML VIAL IV ONE ×2 (12:00→12:33)
[2017-04-03] MEDS: IOHEXOL 350 MG/ML 100ML IJ ONE ×4 (12:00→12:33)
[2017-04-03] MEDS: METOPROLOL TARTRATE 1MG/1ML-5ML VIAL IV ONE ×2 (12:00→12:33)
[2017-04-03] MEDS: EPTIFIBATIDE DRIP(0.75MG/ML) 100 ML IV ONE ×2 (12:00→12:32)
[2017-04-03] MEDS: CLOPIDOGREL 300 MG TAB ONE ×2 (12:00→12:34)
[2017-04-03] MEDS: ANGIOMAX 250 MG VIAL IV ONE ×2 (12:00→12:33)
[2017-04-03] MEDS: SODIUM CHL 0.9% 50 ML ONE ×2 (12:00→12:33)
[2017-04-03] MEDS: NITROGLYCERIN 0.4MG/DOSE SPRAY 4.9GM ONE ×2 (12:00→12:33)
[2017-04-03 13:09] VITALS: BP 132/68
[2017-04-03] MEDS ORDERED: LACTULOSE 20Gm/30ML SOLN PO PRN (14:45)
[2017-04-03] MEDS: ACETAMINOPHEN 325 MG TAB PO PRN (14:46)
[2017-04-03] MEDS: DOCUSATE SOD 100 MG CAP PO PRN (15:02)
[2017-04-03 17:00] VITALS: BP 122/57
[2017-04-03 22:00] VITALS: BP 134/58
[2017-04-03] MEDS: ATORVASTATIN 20 MG TAB PO SCH (22:12)
[2017-04-03] MEDS: DONEPEZIL HYDROCHLORIDE 5 MG TAB PO SCH (22:13)
[2017-04-04 05:29] VITALS: BP 144/67
[2017-04-04 06:08] LABS: BUN/Creatinine Ratio 20.3; Calcium 8.9 mg/dL (8.5-10.1); Potassium 3.7 mmol/L (3.5-5.1)
[2017-04-04] MEDS: LEVOTHYROXINE SODIUM 25 MCG TAB PO SCH (06:29)
[2017-04-04] MEDS: HYDROcodone-ACET 5/325MG TAB PO PRN ×3 (06:30→18:28)
[2017-04-04 09:00] VITALS: BP 110/62
[2017-04-04] MEDS: FAMOTIDINE 20 MG TAB PO SCH ×2 (10:58→22:30)
[2017-04-04] MEDS: amLODIPine BESYLATE 5 MG TAB PO SCH (10:58)
[2017-04-04] MEDS: APIXABAN 5 MG TAB PO SCH ×2 (10:58→22:30)
[2017-04-04] MEDS: DULoxetine HCL 30 MG CAP PO SCH (10:59)
[2017-04-04] MEDS: CLOPIDOGREL BISULFATE 75 MG TAB PO SCH (10:59)
[2017-04-04] MEDS: CARVEDILOL 12.5 MG TAB PO SCH ×2 (10:59→22:31)
[2017-04-04 13:00] VITALS: BP 136/64
[2017-04-04 16:38] VITALS: BP 132/61
[2017-04-04 22:21] VITALS: BP_SYST 127; BP_SYST 135; BP_DIAS 54; BP_DIAS 61
[2017-04-04] MEDS: DONEPEZIL HYDROCHLORIDE 5 MG TAB PO SCH (22:30)
[2017-04-04] MEDS ORDERED: MORPHINE SULFATE 4 MG/ML SYR/VIAL IV ONE (22:30)
[2017-04-04] MEDS: ATORVASTATIN 20 MG TAB PO SCH (22:30)
[2017-04-05] MEDS: HYDROcodone-ACET 5/325MG TAB PO PRN ×4 (04:11→20:02)
[2017-04-05 05:19] VITALS: BP 132/68
[2017-04-05] MEDS: LEVOTHYROXINE SODIUM 25 MCG TAB PO SCH (06:31)
[2017-04-05 09:00] VITALS: BP 139/72
[2017-04-05] MEDS: DULoxetine HCL 30 MG CAP PO SCH (11:29)
[2017-04-05] MEDS: CLOPIDOGREL BISULFATE 75 MG TAB PO SCH (11:29)
[2017-04-05] MEDS: amLODIPine BESYLATE 5 MG TAB PO SCH (11:30)
[2017-04-05] MEDS: APIXABAN 5 MG TAB PO SCH ×2 (11:30→22:04)
[2017-04-05] MEDS: CARVEDILOL 12.5 MG TAB PO SCH ×2 (11:31→22:05)
[2017-04-05] MEDS: FAMOTIDINE 20 MG TAB PO SCH ×2 (11:32→22:03)
[2017-04-05 13:00] VITALS: BP 117/59
[2017-04-05] MEDS: DOCUSATE SOD 100 MG CAP PO PRN (20:02)
[2017-04-05] MEDS ORDERED: FUROSEMIDE 40 MG/4 ML VIAL IV ONE (20:30)
[2017-04-05] MEDS ORDERED: FUROSEMIDE 20 MG/2 ML VIAL IV ONE (20:30)
[2017-04-05 21:36] VITALS: BP 108/45
[2017-04-05] MEDS: ATORVASTATIN 20 MG TAB PO SCH (22:03)
[2017-04-05] MEDS: DONEPEZIL HYDROCHLORIDE 5 MG TAB PO SCH (22:03)
[2017-04-06 04:51] VITALS: BP 126/59
[2017-04-06] MEDS: HYDROcodone-ACET 5/325MG TAB PO PRN (05:14)
[2017-04-06] MEDS: LEVOTHYROXINE SODIUM 25 MCG TAB PO SCH (06:13)
[2017-04-06 06:45] LABS: Basophils # (auto) 0.1 uL; Basophils % (auto) 0.9 % (0.0-2.0); Eosinophils # (auto) 0.4 uL; Eosinophils % (auto) 6.4 % (0.0-7.0); Hematocrit 33.6 % (36.0-46.0); Hemoglobin 11.3 g/dL (12.2-16.2); Lymphocytes # (auto) 1.5 uL; Lymphocytes % (auto) 22.9 % (10.0-50.0); Mean Corpuscular Hemoglobin 31.3 pg (28.0-32.0); Mean Corpuscular Hgb Conc. 33.7 g/dL (32.0-36.0); Mean Corpuscular Volume 92.9 fL (80.0-100.0); Monocytes # (auto) 0.8 uL; Monocytes % (auto) 12.1 % (0.0-12.0); Neutrophils # (auto) 3.8 uL; Neutrophils % (auto) 57.7 % (37.0-80.0); Nucleated Red Blood Cells % 0.1 %; Platelet Count (auto) 344 10^3/uL (140-450); Red Blood Cells 3.62 10^6/uL (4.0-5.20); Red Cell Distribution Width 15.4 % (11.8-14.3); White Blood Cell 6.7 10^3/uL (4.4-10.8)
[2017-04-06 07:03] LABS: BUN/Creatinine Ratio 21.1; Calcium 9.1 mg/dL (8.5-10.1); Potassium 3.6 mmol/L (3.5-5.1)
[2017-04-06 08:22] VITALS: BP 132/66
[2017-04-06] MEDS: APIXABAN 5 MG TAB PO SCH (10:18)
[2017-04-06] MEDS: CARVEDILOL 12.5 MG TAB PO SCH (10:18)
[2017-04-06] MEDS: DULoxetine HCL 30 MG CAP PO SCH (10:19)
[2017-04-06] MEDS: FAMOTIDINE 20 MG TAB PO SCH (10:19)
[2017-04-06] MEDS: CLOPIDOGREL BISULFATE 75 MG TAB PO SCH (10:19)
[2017-04-06] MEDS: amLODIPine BESYLATE 5 MG TAB PO SCH (10:19)
[2017-04-06] MEDS ORDERED: TEMAZEPAM 15 MG CAP PO PRN (10:45)
[2017-04-06] MEDS ORDERED: HYDROcodone-ACET 5/325MG TAB PO PRN (10:45)
[2017-04-06] MEDS ORDERED: DOCU100C8 PO (10:47)
[2017-04-06] MEDS ORDERED: CLOP75TA28 PO (10:47)
[2017-04-06] MEDS ORDERED: FAM20T PO (10:47)
[2017-04-06] MEDS: ACETAMINOPHEN 325 MG TAB PO PRN (11:46)
[2017-04-06] MEDS ORDERED: ENOXAPARIN SOD 100 MG/1 ML SYRINGE SC ONE (12:30)
[2017-04-06] MEDS ORDERED: ENO100SY SC (12:40)
[2017-04-06 12:58] VITALS: BP 126/57
[2017-04-06 15:06] LABS: INR 1.16 (0.9-1.15); Prothrombin Time 12.7 sec (9.37-12.3)
[2017-04-06] MEDS ORDERED: ENOXAPARIN SOD 80 MG/0.8ML SYRINGE SC SCH (22:00)
== END 2017-04-06 16:40 | disposition home or self-care (01) | DRG 246 ==
LOC: ER 12:59 → EDBD 12:59 → TELE 13:00 → TELE-WESTW 23:34
PROVIDERS: ADMIT Nurse Practitioner; ATTEND Internal Medicine
PROC: 027034Z Dilation of Coronary Artery, One Artery with Drug-eluting Intraluminal Device, Percutaneous Approach (ICD-10-PCS; principal; 2017-04-03)
PROC: 02C03ZZ Extirpation of Matter from Coronary Artery, One Artery, Percutaneous Approach (ICD-10-PCS; 2017-04-03)
PROC: 4A023N7 Measurement of Cardiac Sampling and Pressure, Left Heart, Percutaneous Approach (ICD-10-PCS; 2017-04-03)
PROC: B2111ZZ Fluoroscopy of Multiple Coronary Arteries using Low Osmolar Contrast (ICD-10-PCS; 2017-04-03)
PROC: B2151ZZ Fluoroscopy of Left Heart using Low Osmolar Contrast (ICD-10-PCS; 2017-04-03)
DX: I25.10 Atherosclerotic heart disease of native coronary artery without angina pectoris (principal); E43 Unspecified severe protein-calorie malnutrition; I82.412 Acute embolism and thrombosis of left femoral vein; G93.89 Other specified disorders of brain; I50.9 Heart failure, unspecified; I11.0 Hypertensive heart disease with heart failure; I69.351 Hemiplegia and hemiparesis following cerebral infarction affecting right dominant side; I82.432 Acute embolism and thrombosis of left popliteal vein; E66.9 Obesity, unspecified; E03.9 Hypothyroidism, unspecified; E78.5 Hyperlipidemia, unspecified; F03.90 Unspecified dementia, unspecified severity, without behavioral disturbance, psychotic disturbance, mood disturbance, and anxiety; F32.9 Major depressive disorder, single episode, unspecified; R94.39 Abnormal result of other cardiovascular function study; F41.9 Anxiety disorder, unspecified; G47.00 Insomnia, unspecified; I67.2 Cerebral atherosclerosis; I67.9 Cerebrovascular disease, unspecified; M17.0 Bilateral primary osteoarthritis of knee; J45.909 Unspecified asthma, uncomplicated; Z79.01 Long term (current) use of anticoagulants; Z82.49 Family history of ischemic heart disease and other diseases of the circulatory system; Z82.5 Family history of asthma and other chronic lower respiratory diseases; Z83.3 Family history of diabetes mellitus; Z86.718 Personal history of other venous thrombosis and embolism; Z86.711 Personal history of pulmonary embolism; Z90.710 Acquired absence of both cervix and uterus; Z88.6 Allergy status to analgesic agent; Z88.8 Allergy status to other drugs, medicaments and biological substances; Z79.899 Other long term (current) drug therapy; Z87.440 Personal history of urinary (tract) infections; Z90.49 Acquired absence of other specified parts of digestive tract; Z80.8 Family history of malignant neoplasm of other organs or systems; Z71.3 Dietary counseling and surveillance; Z68.33 Body mass index [BMI] 33.0-33.9, adult
CPT/HCPCS: 36415; 70450; 71045; 78452; 80048; 80053; 82962; 83735; 83880; 84484; 84550; 85025; 85610; 85730; 86431; 87081; 92933; 93005; 93017; 93306; 93971; 94761; 97163; 99152; 99153; C1874; C1887; J0153; J2250; J2405; J3490

== ENCOUNTER → 2017-04-16 | Outpatient (CLI) | payer MEDICARE, OTHER ==
[~2017-04-16] MED LIST changes: -APIX5TAB PO; +CLOP75TA28 PO; +DOCU100C8 PO; +ENO100SY SC; +FAM20T PO
[2017-04-16 12:07] LABS: Eosinophils # (auto) 0.3 uL; Hemoglobin 11.6 g/dL (12.2-16.2); Lymphocytes # (auto) 1.4 uL; Monocytes # (auto) 0.8 uL; Nucleated Red Blood Cells % 0.1 %
[2017-04-16 12:09] LABS: Basophils # (auto) 0 uL; Basophils % (auto) 0.8 % (0.0-2.0); Eosinophils % (auto) 5.7 % (0.0-7.0); Hematocrit 35.4 % (36.0-46.0); Lymphocytes % (auto) 23.6 % (10.0-50.0); Mean Corpuscular Hemoglobin 30.8 pg (28.0-32.0); Mean Corpuscular Hgb Conc. 32.9 g/dL (32.0-36.0); Mean Corpuscular Volume 93.7 fL (80.0-100.0); Monocytes % (auto) 13.6 % (0.0-12.0); Neutrophils # (auto) 3.3 uL; Neutrophils % (auto) 56.3 % (37.0-80.0); Platelet Count (auto) 456 10^3/uL (140-450); Red Blood Cells 3.78 10^6/uL (4.0-5.20); Red Cell Distribution Width 15.1 % (11.8-14.3); White Blood Cell 5.9 10^3/uL (4.4-10.8)
[2017-04-16 13:33] LABS: Alanine Aminotransferase 15 U/L (13-56); Albumin 2.9 g/dL (3.4-5.0); Alkaline Phosphatase 66 U/L (45-117); Anion Gap 11 (5-15); Aspartate Aminotransferase 13 U/L (15-37); BUN/Creatinine Ratio 22.4; Bilirubin, Direct < 0.1 mg/dL (0-0.2); Bilirubin, Total 0.1 mg/dL (0.2-1.0); Blood Urea Nitrogen 17 mg/dL (7-18); Calcium 9.5 mg/dL (8.5-10.1); Carbon Dioxide 25 mmol/L (21-32); Chloride 107 mmol/L (98-107); Cholesterol 97 mg/dL (< 200); GFR African American 94 mL/min; GFR Non-African American 78 mL/min; Glucose 71 mg/dL (74-106); HDL Cholesterol 37 mg/dL (40-59); LDL Cholesterol 57 mg/dL (< 100); Potassium 3.6 mmol/L (3.5-5.1); Sodium 143 mmol/L (136-145); Total Protein 8.5 g/dL (6.4-8.2); Triglycerides 84 mg/dL (< 150)
== END | disposition home or self-care (01) ==
LOC: LAB 10:42
PROVIDERS: ATTEND Internal Medicine Cardiovascular Disease
DX: E78.00 Pure hypercholesterolemia, unspecified (principal); D64.9 Anemia, unspecified; I10 Essential (primary) hypertension; E11.9 Type 2 diabetes mellitus without complications; E03.9 Hypothyroidism, unspecified; E55.9 Vitamin D deficiency, unspecified; K74.1 Hepatic sclerosis
CPT/HCPCS: 36415; 80048; 80061; 80076; 82306; 83036; 84443; 85025

== ENCOUNTER → 2017-05-26 | Outpatient (CLI) | payer MEDICARE, OTHER | END | disposition home or self-care (01) | LOC: Rad HDHVI 10:10 | PROVIDERS: ATTEND Internal Medicine | DX: I82.811 Embolism and thrombosis of superficial veins of right lower extremity (principal); I82.532 Chronic embolism and thrombosis of left popliteal vein; I10 Essential (primary) hypertension; E03.9 Hypothyroidism, unspecified; E78.00 Pure hypercholesterolemia, unspecified; E11.9 Type 2 diabetes mellitus without complications; Z79.01 Long term (current) use of anticoagulants; Z79.899 Other long term (current) drug therapy | CPT/HCPCS: 93970 ==

== ENCOUNTER → 2017-10-27 | Outpatient (CLI) | payer MEDICARE, BC ==
[2017-10-27 09:05] LABS: Lymphocytes # (auto) 1.5 uL; Monocytes # (auto) 0.6 uL; Red Cell Distribution Width 14.7 % (11.8-14.3)
[2017-10-27 09:13] LABS: Basophils # (auto) 0.1 uL; Eosinophils # (auto) 0.4 uL; Eosinophils % (auto) 5.8 % (0.0-7.0); Hematocrit 39.8 % (36.0-46.0); Hemoglobin 13.1 g/dL (12.2-16.2); Lymphocytes % (auto) 23.4 % (10.0-50.0); Mean Corpuscular Hemoglobin 31.7 pg (28.0-32.0); Mean Corpuscular Hgb Conc. 32.8 g/dL (32.0-36.0); Mean Corpuscular Volume 96.6 fL (80.0-100.0); Monocytes % (auto) 9.2 % (0.0-12.0); Neutrophils % (auto) 60.6 % (37.0-80.0); Nucleated Red Blood Cells % 0.1 %; Platelet Count (auto) 329 10^3/uL (140-450); Red Blood Cells 4.12 10^6/uL (4.0-5.20); White Blood Cell 6.6 10^3/uL (4.4-10.8)
== END | disposition home or self-care (01) ==
LOC: LAB 08:43
PROVIDERS: ATTEND Internal Medicine
DX: I10 Essential (primary) hypertension (principal); I63.9 Cerebral infarction, unspecified; I50.9 Heart failure, unspecified; F32.9 Major depressive disorder, single episode, unspecified; Z88.6 Allergy status to analgesic agent; Z88.1 Allergy status to other antibiotic agents; Z88.8 Allergy status to other drugs, medicaments and biological substances
CPT/HCPCS: 36415; 85025

== ENCOUNTER → 2017-11-03 | Outpatient (CLI) | payer MEDICARE, BC ==
[2017-11-03 16:20] LABS: Urine Bacteria FEW /hpf (None Seen); Urine Blood Negative /uL (Negative); Urine Mucus FEW (None Seen); Urine WBC 25 /hpf (0 - 5)
== END | disposition home or self-care (01) ==
LOC: LAB 15:43
PROVIDERS: ATTEND Internal Medicine
DX: F03.90 Unspecified dementia, unspecified severity, without behavioral disturbance, psychotic disturbance, mood disturbance, and anxiety (principal); R53.1 Weakness; Z88.6 Allergy status to analgesic agent; Z88.1 Allergy status to other antibiotic agents; Z88.8 Allergy status to other drugs, medicaments and biological substances
CPT/HCPCS: 81001

== ENCOUNTER → 2017-11-16 | Outpatient (CLI) | payer MEDICARE, BC | END | disposition home or self-care (01) | LOC: Rad HDHVI 08:40 | PROVIDERS: ATTEND Internal Medicine Cardiovascular Disease | DX: I07.1 Rheumatic tricuspid insufficiency (principal); I25.2 Old myocardial infarction; I48.0 Paroxysmal atrial fibrillation; I26.99 Other pulmonary embolism without acute cor pulmonale | CPT/HCPCS: 93306 ==

== ENCOUNTER → 2017-11-27 | Outpatient (CLI) | payer MEDICARE, OTHER ==
[~2017-11-27] MED LIST changes: +AMLO5TAB13 PO; +APIX5TAB PO
[2017-11-27 10:30] VITALS: BP 136/88
[2017-11-27 10:55] VITALS: BP 141/65
[2017-11-27 12:06] LABS: Basophils # (auto) 0.1 uL; Basophils % (auto) 0.7 % (0.0-2.0); Eosinophils # (auto) 0.5 uL; Eosinophils % (auto) 5.9 % (0.0-7.0); Hematocrit 38.2 % (36.0-46.0); Hemoglobin 12.6 g/dL (12.2-16.2); Lymphocytes # (auto) 1.7 uL; Lymphocytes % (auto) 22.5 % (10.0-50.0); Mean Corpuscular Hemoglobin 31.8 pg (28.0-32.0); Mean Corpuscular Volume 96.5 fL (80.0-100.0); Monocytes # (auto) 0.7 uL; Monocytes % (auto) 8.6 % (0.0-12.0); Neutrophils # (auto) 4.8 uL; Neutrophils % (auto) 62.3 % (37.0-80.0); Nucleated Red Blood Cells % 0.1 %; Platelet Count (auto) 312 10^3/uL (140-450); Red Blood Cells 3.96 10^6/uL (4.0-5.20); Red Cell Distribution Width 14.7 % (11.8-14.3); White Blood Cell 7.7 10^3/uL (4.4-10.8)
[2017-11-27 12:15] LABS: INR 1.01 (0.9-1.15); Prothrombin Time 10.8 sec (9.27-12.13)
[2017-11-27 13:05] LABS: Calcium 9.2 mg/dL (8.5-10.1); Potassium 3.6 mmol/L (3.5-5.1)
[2017-11-27 13:07] LABS: BUN/Creatinine Ratio 20.5
== END | disposition home or self-care (01) ==
LOC: Rad HDHVI 10:19
PROVIDERS: ATTEND Internal Medicine Cardiovascular Disease
DX: Z01.818 Encounter for other preprocedural examination (principal); I51.7 Cardiomegaly; I70.0 Atherosclerosis of aorta; D64.9 Anemia, unspecified; R79.1 Abnormal coagulation profile; I10 Essential (primary) hypertension; I63.9 Cerebral infarction, unspecified; I25.10 Atherosclerotic heart disease of native coronary artery without angina pectoris
CPT/HCPCS: 36415; 71046; 80048; 85025; 85610; 85730; 93005; G0463

== ENCOUNTER 2017-12-02 07:42 | Day surgery (SDC) | payer MEDICARE, OTHER ==
[~2017-12-02] VITALS: Ht 152.4 cm; Wt 68.0 kg
[~2017-12-02 07:42] MED LIST changes: -CHOL1000T PO; -CLOP75TA28 PO; -ENO100SY SC; -FAM20T PO; -HYDR-4683 PO
[2017-12-02] MEDS ORDERED: IOHEXOL 350 MG/ML 100ML IJ ONE (08:51)
[2017-12-02] MEDS ORDERED: MIDAZOLAM HCL 1MG/1ML-2 ML VIAL ONE (08:51)
[2017-12-02] MEDS ORDERED: ANGIOMAX 250 MG VIAL IV ONE (08:55)
[2017-12-02] MEDS ORDERED: SODIUM CHL 0.9% 0 ML ONE (08:55)
[2017-12-02] MEDS ORDERED: IODIXANOL 320MG/ML 100ML BTL IV ONE ×2 (08:56→09:03)
[2017-12-02] MEDS ORDERED: LIDOCAINE 2%HCL (LOCAL ANESTH.) INJ 10ml MDV ONE (08:56)
== END 2017-12-02 12:45 | disposition home or self-care (01) ==
LOC: CATH 07:42
PROVIDERS: ATTEND Internal Medicine
DX: I25.10 Atherosclerotic heart disease of native coronary artery without angina pectoris (principal); I27.20 Pulmonary hypertension, unspecified; I82.409 Acute embolism and thrombosis of unspecified deep veins of unspecified lower extremity; I74.9 Embolism and thrombosis of unspecified artery; F32.9 Major depressive disorder, single episode, unspecified; I11.0 Hypertensive heart disease with heart failure; J45.909 Unspecified asthma, uncomplicated; Z95.5 Presence of coronary angioplasty implant and graft; Z90.710 Acquired absence of both cervix and uterus; Z85.43 Personal history of malignant neoplasm of ovary; Z82.49 Family history of ischemic heart disease and other diseases of the circulatory system; Z84.89 Family history of other specified conditions; Z84.1 Family history of disorders of kidney and ureter; Z82.5 Family history of asthma and other chronic lower respiratory diseases; Z83.3 Family history of diabetes mellitus; Z88.5 Allergy status to narcotic agent; Z88.6 Allergy status to analgesic agent; Z88.8 Allergy status to other drugs, medicaments and biological substances; Z86.73 Personal history of transient ischemic attack (TIA), and cerebral infarction without residual deficits; Z79.891 Long term (current) use of opiate analgesic; Z79.82 Long term (current) use of aspirin
CPT/HCPCS: 36600; 82805; 93460; 99152; 99153; A6257; C1760; C1894; J1644; J2001; J2250; J7030; Q9967

== ENCOUNTER 2018-06-03 22:00 | Emergency (ER) | payer MEDICARE, OTHER ==
[~2018-06-03] VITALS: Ht 167.6 cm; Wt 104.3 kg
[~2018-06-03 22:00] MED LIST changes: -DOCU100C8 PO; +SILD50TA42 PO; +ZOLP10TA PO
[2018-06-03 23:01] LABS: Basophils # (auto) 0.1 uL; Basophils % (auto) 1.2 % (0.0-2.0); Eosinophils # (auto) 0.5 uL; Hematocrit 37.4 % (36.0-46.0); Hemoglobin 11.9 g/dL (12.2-16.2); Lymphocytes % (auto) 26.3 % (10.0-50.0); Mean Corpuscular Hemoglobin 29.7 pg (28.0-32.0); Mean Corpuscular Hgb Conc. 31.9 g/dL (32.0-36.0); Mean Corpuscular Volume 93.1 fL (80.0-100.0); Monocytes # (auto) 0.7 uL; Monocytes % (auto) 9.6 % (0.0-12.0); Neutrophils # (auto) 4.3 uL; Neutrophils % (auto) 56.9 % (37.0-80.0); Nucleated Red Blood Cells % 0.1 %; Platelet Count (auto) 316 10^3/uL (140-450); Red Blood Cells 4.01 10^6/uL (4.0-5.20); Red Cell Distribution Width 14.6 % (11.8-14.3); White Blood Cell 7.6 10^3/uL (4.4-10.8)
[2018-06-03 23:21] LABS: Potassium 4.6 mmol/L (3.5-5.1)
[2018-06-03 23:23] LABS: Albumin 3.2 g/dL (3.4-5.0); Calcium 8.7 mg/dL (8.5-10.1)
[2018-06-03 23:26] LABS: BUN/Creatinine Ratio 15.1
[2018-06-03 23:29] LABS: Bilirubin, Total 0.3 mg/dL (0.2-1.0)
[2018-06-04 05:28] VITALS: BP 149/79
== END 2018-06-04 06:09 | disposition home or self-care (01) ==
LOC: EDBD 22:00 → ER 22:03
DX: R53.1 Weakness (principal); F41.9 Anxiety disorder, unspecified; I25.10 Atherosclerotic heart disease of native coronary artery without angina pectoris; I11.0 Hypertensive heart disease with heart failure; I50.9 Heart failure, unspecified; E78.5 Hyperlipidemia, unspecified; E03.9 Hypothyroidism, unspecified; Z90.710 Acquired absence of both cervix and uterus; Z90.49 Acquired absence of other specified parts of digestive tract; Z88.8 Allergy status to other drugs, medicaments and biological substances; Z79.899 Other long term (current) drug therapy; Z86.73 Personal history of transient ischemic attack (TIA), and cerebral infarction without residual deficits; Z98.61 Coronary angioplasty status; Z86.718 Personal history of other venous thrombosis and embolism
CPT/HCPCS: 36415; 70450; 80053; 85025

== ENCOUNTER 2018-06-18 01:05 | Emergency (ER) | payer MEDICARE, OTHER ==
[~2018-06-18] VITALS: Ht 165.1 cm; Wt 90.7 kg
[2018-06-18 02:20] LABS: Basophils # (auto) 0.1 uL; Basophils % (auto) 1.5 % (0.0-2.0); Eosinophils # (auto) 0.5 uL; Hematocrit 39.7 % (36.0-46.0); Hemoglobin 12.7 g/dL (12.2-16.2); Lymphocytes # (auto) 2.3 uL; Lymphocytes % (auto) 29.1 % (10.0-50.0); Mean Corpuscular Hemoglobin 30.3 pg (28.0-32.0); Mean Corpuscular Hgb Conc. 31.9 g/dL (32.0-36.0); Mean Corpuscular Volume 94.8 fL (80.0-100.0); Monocytes # (auto) 0.9 uL; Monocytes % (auto) 10.8 % (0.0-12.0); Neutrophils # (auto) 4.2 uL; Neutrophils % (auto) 52.6 % (37.0-80.0); Platelet Count (auto) 302 10^3/uL (140-450); Red Blood Cells 4.19 10^6/uL (4.0-5.20); White Blood Cell 7.9 10^3/uL (4.4-10.8)
[2018-06-18 02:28] LABS: INR 1.04 (0.9-1.15); Partial Thromboplastin Time 31.6 sec (23.78-33.04); Prothrombin Time 11.1 sec (9.27-12.13)
[2018-06-18 02:34] LABS: Alanine Aminotransferase 12 U/L (13-56); Albumin 3.4 g/dL (3.4-5.0); Anion Gap 6 (5-15); Aspartate Aminotransferase 12 U/L (15-37); BUN/Creatinine Ratio 15.9; Blood Urea Nitrogen 13 mg/dL (7-18); Calcium 9.2 mg/dL (8.5-10.1); Carbon Dioxide 28 mmol/L (21-32); Chloride 106 mmol/L (98-107); GFR African American 86 mL/min; GFR Non-African American 71 mL/min; Glucose 101 mg/dL (74-106); Potassium 4.1 mmol/L (3.5-5.1); Sodium 140 mmol/L (136-145)
[2018-06-18 02:39] LABS: Alkaline Phosphatase 102 U/L (45-117); Bilirubin, Total 0.3 mg/dL (0.2-1.0); Total Protein 8.3 g/dL (6.4-8.2)
[2018-06-18 07:10] VITALS: BP 126/57
== END 2018-06-18 08:32 | disposition home or self-care (01) ==
LOC: ER 01:05 → EDBD 01:05 → ER 07:52
DX: J40 Bronchitis, not specified as acute or chronic (principal); I25.10 Atherosclerotic heart disease of native coronary artery without angina pectoris; I11.0 Hypertensive heart disease with heart failure; I50.9 Heart failure, unspecified; E78.5 Hyperlipidemia, unspecified; I10 Essential (primary) hypertension; E07.9 Disorder of thyroid, unspecified; Z86.73 Personal history of transient ischemic attack (TIA), and cerebral infarction without residual deficits; Z90.49 Acquired absence of other specified parts of digestive tract; Z90.710 Acquired absence of both cervix and uterus; Z98.61 Coronary angioplasty status; Z86.711 Personal history of pulmonary embolism
CPT/HCPCS: 36415; 71045; 80053; 83605; 84484; 85025; 85610; 85730; 87040; 93005; 94761

== ENCOUNTER 2018-09-20 19:58 | Emergency (ER) | payer MEDICARE, OTHER ==
[~2018-09-20] VITALS: Ht 167.6 cm; Wt 81.6 kg
[~2018-09-20 19:58] MED LIST changes: -AMLO5TAB13 PO; +AMLO5TAB15 PO
[2018-09-20 21:15] LABS: Basophils # (auto) 0.2 uL; Basophils % (auto) 2.3 % (0.0-2.0); Eosinophils # (auto) 0.4 uL; Eosinophils % (auto) 4.1 % (0.0-7.0); Hematocrit 37.3 % (36.0-46.0); Hemoglobin 12.1 g/dL (12.2-16.2); Lymphocytes # (auto) 2.5 uL; Lymphocytes % (auto) 26.1 % (10.0-50.0); Mean Corpuscular Hemoglobin 30.1 pg (28.0-32.0); Mean Corpuscular Hgb Conc. 32.5 g/dL (32.0-36.0); Mean Corpuscular Volume 92.5 fL (80.0-100.0); Monocytes # (auto) 0.8 uL; Monocytes % (auto) 8.3 % (0.0-12.0); Neutrophils # (auto) 5.6 uL; Neutrophils % (auto) 59.2 % (37.0-80.0); Nucleated Red Blood Cells % 0.1 %; Platelet Count (auto) 386 10^3/uL (140-450); Red Blood Cells 4.04 10^6/uL (4.0-5.20); Red Cell Distribution Width 14.7 % (11.8-14.3); White Blood Cell 9.5 10^3/uL (4.4-10.8)
[2018-09-20] MEDS ORDERED: metroNIDAZOLE 500 MG TAB PO ONE (23:15)
[2018-09-21 00:03] LABS: Alanine Aminotransferase 16 U/L (13-56); Albumin 3.1 g/dL (3.4-5.0); Anion Gap 11 (5-15); Aspartate Aminotransferase 20 U/L (15-37); BUN/Creatinine Ratio 10.2; Blood Urea Nitrogen 9 mg/dL (7-18); Calcium 9.4 mg/dL (8.5-10.1); Carbon Dioxide 28 mmol/L (21-32); Chloride 103 mmol/L (98-107); GFR African American 80 mL/min; GFR Non-African American 66 mL/min; Glucose 126 mg/dL (74-106); Lipase 44 U/L (73-393); Potassium 3.8 mmol/L (3.5-5.1); Sodium 142 mmol/L (136-145)
[2018-09-21 00:06] LABS: Alkaline Phosphatase 103 U/L (45-117); Bilirubin, Total 0.1 mg/dL (0.2-1.0)
[2018-09-21 00:24] VITALS: BP 173/89
== END 2018-09-21 00:24 | disposition home or self-care (01) ==
LOC: EDBD 19:58 → ER 20:03
DX: K57.90 Diverticulosis of intestine, part unspecified, without perforation or abscess without bleeding (principal); K80.20 Calculus of gallbladder without cholecystitis without obstruction; J45.909 Unspecified asthma, uncomplicated; I25.10 Atherosclerotic heart disease of native coronary artery without angina pectoris; E78.5 Hyperlipidemia, unspecified; I11.0 Hypertensive heart disease with heart failure; I50.9 Heart failure, unspecified; Z88.5 Allergy status to narcotic agent; Z88.8 Allergy status to other drugs, medicaments and biological substances; Z79.899 Other long term (current) drug therapy; Z86.73 Personal history of transient ischemic attack (TIA), and cerebral infarction without residual deficits; E07.9 Disorder of thyroid, unspecified; Z98.61 Coronary angioplasty status; Z90.710 Acquired absence of both cervix and uterus; Z90.49 Acquired absence of other specified parts of digestive tract
CPT/HCPCS: 36415; 74176; 80053; 83690; 85025; 93005; 94761